=== PATIENT | female | born 1995 | race African-American/Black ===

== ENCOUNTER 2017-07-19 07:31 | Emergency (ER) | payer OTHER, SELFPAY ==
[2017-07-19 07:45] LABS: #Eosinphils 0.1 thou/uL (0.0-0.7); #Lymphocytes 2.5 thou/uL (1.20-3.40); #Monocytes 0.9 thou/uL (0.11-0.59); #Neutrophils 6.5 thou/uL (1.40-6.50); %Basophils 0.1 % (0.0-1.0); %Eosinophils 1.5 % (0.0-10.0); %Lymphocytes 24.6 % (21.0-51.0); %Monocytes 8.8 % (0.0-10.0); %Neutrophils 64.9 % (42.0-75.0); Hemoglobin 14.4 g/dL (12.0-16.0); Mean Corpuscular HGB CONC 33.8 g/dL (32.0-36.0); Mean Corpuscular Hemoglobin 30.8 pg (27.0-31.0); Mean Corpuscular Volume 91.1 fl (81.0-99.0); Platelet Count 293 thou/uL (130-400); RBC Distribution Width 11.6 % (11.5-14.5); Red Blood Cell (RBC) Count 4.68 mill/uL (4.20-5.40)
[2017-07-19] MEDS ORDERED: Ondansetron ODT 4 MG TAB ONE (07:58)
[2017-07-19] MEDS ORDERED: Morphine 4 MG/ML VIAL ONE (08:15)
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
[2017-07-19] MEDS ORDERED: HYDROcodone/Acetaminophen 5/325 mg Tablet ONE (09:16)
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
[2017-07-19] MEDS ORDERED: Adacel (T-DAP) 0.5 ML VIAL ONE (10:23)
[2017-07-19] MEDS ORDERED: ISOVUE-370 76%-LOCM 1 ML ONE (11:33)
== END 2017-07-19 10:56 | disposition home or self-care (01) ==
LOC: ERS 07:31
DX: S22.069A Unspecified fracture of T7-T8 vertebra, initial encounter for closed fracture (principal); S22.079A Unspecified fracture of T9-T10 vertebra, initial encounter for closed fracture; S91.112A Laceration without foreign body of left great toe without damage to nail, initial encounter; S91.115A Laceration without foreign body of left lesser toe(s) without damage to nail, initial encounter; T14.8XXA Other injury of unspecified body region, initial encounter; V89.2XXA Person injured in unspecified motor-vehicle accident, traffic, initial encounter; W22.12XA Striking against or struck by front passenger side automobile airbag, initial encounter
CPT/HCPCS: 12001; 70450; 71045; 71260; 72125; 74177; 85025; 90471; 90715; 96374; G0390; J2270; Q0162